=== PATIENT | male | born 1955 | race African-American/Black ===

== ENCOUNTER 2017-03-26 07:45 | Inpatient (IN) | payer OTHER ==
[~2017-03-26] VITALS: Ht 193 cm; Wt 104.9 kg
--- NOTE | ~2017-03-26 | 2DMMODE ---
[facility] [address] [place] [address] 2 D/M-MODE ECHOCARDIOGRAM Name: JOLIE HENDRICKSON KYLIE Room #: 212-P ADM IN M.R.#: [id number] Admission: 03/26/17 Attend Phys: Asa Swenson Discharge: Date of : 57 Date of Service: 03/26/17 1318 Report #: [id number] THIS REPORT FOR: //name// APPROVED REPORT Study performed: 03/26/2017 11:44:11 EXAM: Comprehensive 2D, Doppler, and color-flow Echocardiogram Patient Location: Bedside Room #: 212 Status: routine Other Information Study Quality: Good Indications Aflutter. Hx: SVT 2D Dimensions RVDd: 49.96 mm LVEF(%): 33.25 (>50%) IVSd: 12.20 (7-11mm) LVOT Diam: 23.80 (18-24mm) LVDd: 67.56 mm PWd: 13.44 (7-11mm) Ascending Ao: 40.14 (22-36mm) LVDs: 56.59 (25-40mm) Aortic Root: 42.78 mm Doe's LVEF: 33.25 % Volumes Left Atrial Volume (Systole) Single Plane 4CH: 89.74 mL Single Plane 2CH: 100.45 mL LA ESV Index: 47.00 mL/m2 Aortic Valve AoV Peak Twin.: 1.80 m/s AO Peak Gr.: 32.74 mmHg LVOT Max P.47 mmHg LVOT Max V: 0.61 m/s TIEN Vmax: 1.50 cm2 Mitral Valve MV Decel. Time: 251.28 ms MV E Max Twin.: 0.70 m/s Pulmonary Valve PV Peak Twin.: 0.63 m/s PV Peak Gr.: 1.59 mmHg [facility] [place] [address] 2 D/M-MODE ECHOCARDIOGRAM Name: JOLIE HENDRICKSON [place] Room #: 212-P ADM IN M.R.#: [id number] Admission: 03/26/17 Attend Phys: Asa Swenson Discharge: Date of : 57 Date of Service: 03/26/17 1318 Report #: [id number] Tricuspid Valve TR Peak Twin.: 2.69 m/s RAP Estimate: 15.00 mmHg TR Peak Gr.: 28.93 mmHg PA Pressure: 44.00 mmHg Left Ventricle Left ventricle is dilated. Mild concentric left ventricular hypertrophy. Left ventricular systolic function is severely decreased. LVEF is 20-25%. This study is not technically sufficient to allow evaluation of the LV diastolic function. Right Ventricle Right ventricle is dilated. Right ventricle is moderate to severely hypokinetic. Atria Left atrium is dilated. Right atrium is dilated. Aortic Valve Aortic valve leaflets are mildly thickened. Trace aortic regurgitation. There is no aortic valvular stenosis. Mitral Valve The mitral valve is normal in structure. Moderate mitral regurgitation. No evidence of mitral valve stenosis. Tricuspid Valve There is moderate to severe tricuspid regurgitation. The right atrial pressure is estimated at 15 mmHg. There is moderate pulmonary hypertension with an estimated PAP of 44mmHg. Pulmonic Valve The pulmonary valve is normal in structure. Mild pulmonic regurgitation. Great Vessels Aortic root is dilated at 4.3cm. The ascending aorta is mildly dilated. IVC is dilated and collapses <50% with inspiration. Pericardium There is no pericardial effusion. <Conclusion> Left ventricular systolic function is severely decreased. LVEF is 20-25%. [facility] [address] [address] 2 D/M-MODE ECHOCARDIOGRAM Name: JOLIE HENDRICKSON [place] Room #: 212-P [facility] IN .R.#: [id number] Admission: 03/26/17 Attend Phys: Aas Swenson Discharge: Date of : 57 Date of Service: 03/26/17 1318 Report #: [id number] Four chamber enlargement Aortic valve leaflets are mildly thickened. Trace aortic regurgitation, no stenosis. The mitral valve is normal in structure. Moderate mitral regurgitation. Pulmonary artery pressure of 40mmHg There is no pericardial effusion. <ELECTRONICALLY SIGNED> By: Johnathan Arevalo MD, [facility] 03/26/17 1318 17 1318 Johnathan Arevalo MD, FACC /INF
--- NOTE | ~2017-03-26 | EKG ---
[address] [address] ELECTROCARDIOGRAM REPORT Name: EMEKAJOLIEEDUIN ESPINAL Room #: PRE [facility].R.#: [id number] Admission: Attend Phys: Discharge: Date of : 57 Report #: [id number] THIS REPORT FOR: //name// [facility] ED Test Date: 2017-03-26 Test Time: 07:48:33 Pat Name: JOLIE HENDRICKSON Department: Room: Gender: Grinder Set Up Operator Surface: ELENITA : 1955 Requested By: Erik Woodruff Order Number: [id number] MD: Johnathan Arevalo Measurements Intervals [place] Rate: 92 P: SD: QRS: 8 QRSD: 104 T: 167 QT: 374 QTc: 463 Interpretive Statements Atrial flutter LVH with secondary repolarization abnormality No previous ECG available for comparison Electronically Signed On 03-26-2017 8:59:16 CDT by Johnathan Arevalo [email or web address] <ELECTRONICALLY SIGNED> By: Johnathan Arevalo MD, [facility] 03/26/17 0859 0748 0748 Johnathan Arevalo MD, FACC /EPI
[2017-03-26 07:47] VITALS: BP 90/64
[2017-03-26 08:20] LABS: HEMATOCRIT 35.2 % (42.0-52.0); HEMOGLOBIN 11.3 gm/dL (14.0-18.0); MCH 24.3 pg (26.0-34.0); MCHC 32.2 g/dL (28.0-37.0); MCV 75.4 fL (80.0-100.0); PLATELET COUNT 215 thou/uL (150-400); RBC 4.67 mil/uL (4.50-6.00); RDW 21.9 % (10.5-14.5)
[2017-03-26 08:21] LABS: MANUAL DIFF YES
[2017-03-26 08:24] LABS: ANION GAP 6 mmol/L (7-16); BUN 22 mg/dL (7-18); CALCIUM 8.8 mg/dL (8.5-10.1); CHLORIDE 102 mmol/L (98-107); CO2 27 mmol/L (21-32); CREATININE 1.5 mg/dL (0.7-1.3); GLUCOSE 120 mg/dL (74-106); SODIUM 135 mmol/L (136-145)
[2017-03-26 08:32] LABS: TROPONIN-I < 0.04 ng/mL (<0.04-0.07)
[2017-03-26] MEDS ORDERED: LOPRESSOR100 M1 PO (08:47)
[2017-03-26] MEDS ORDERED: LISINOPRIL20 MG PO (08:48)
[2017-03-26] MEDS ORDERED: ASPIRIN325 PO (08:49)
[2017-03-26] MEDS ORDERED: PAXIL10 MG PO (08:49)
[2017-03-26] MEDS ORDERED: LASIX 80 MG TAB80 MG PO (08:49)
[2017-03-26 09:39] LABS: ABSOLUTE NEUTROPHILS 2.4 thou/uL (1.4-8.2); TOTAL CELL COUNT 100
[2017-03-26 09:40] LABS: ANISOCYTOSIS 2+; MICROCYTES 2+; OVALOCYTES 1+
[2017-03-26 11:37] VITALS: BP 116/88
[2017-03-26 11:50] VITALS: BP 107/81
[2017-03-26 17:38] VITALS: BP 115/85
[2017-03-26 20:00] VITALS: BP 105/83
[2017-03-26 23:33] VITALS: BP 110/78
[2017-03-27 03:58] VITALS: BP 126/92
[2017-03-27 04:07] LABS: CALCIUM 8.5 mg/dL (8.5-10.1); CREATININE 1.2 mg/dL (0.7-1.3); POTASSIUM 4.1 mmol/L (3.5-5.1)
[2017-03-27 07:55] VITALS: BP 125/93
[2017-03-27 12:10] VITALS: BP 119/86
[2017-03-27 16:25] VITALS: BP 127/80
[2017-03-27 20:17] VITALS: BP 130/97
[2017-03-28 03:17] LABS: CALCIUM 8.6 mg/dL (8.5-10.1); CREATININE 1.1 mg/dL (0.7-1.3); POTASSIUM 3.8 mmol/L (3.5-5.1)
[2017-03-28 04:30] VITALS: BP 136/94
[2017-03-28 07:34] VITALS: BP 119/88
[2017-03-28] MEDS ORDERED: CARDIZEM CD120 MG PO (09:54)
[2017-03-28] MEDS ORDERED: TOPROL XL100 MG PO (09:54)
[2017-03-28] MEDS ORDERED: PRADAXA150 MG PO (09:54)
[2017-03-28 10:38] VITALS: BP 119/88
[2017-03-28 11:00] VITALS: BP 115/82
[2017-03-28 14:39] VITALS: BP 119/88
== END 2017-03-28 14:40 | disposition home or self-care (01) | DRG 310 ==
LOC: ER 07:45 → EROBS 09:48 → 2N 10:18
PROVIDERS: Emergency Medicine; Nurse Practitioner Acute Care; Nurse Practitioner Adult Health
DX: I48.92 Unspecified atrial flutter (principal); I42.9 Cardiomyopathy, unspecified; I48.91 Unspecified atrial fibrillation; D64.9 Anemia, unspecified; I47.1 Supraventricular tachycardia; I95.9 Hypotension, unspecified; Z91.19 Patient's noncompliance with other medical treatment and regimen; Z79.82 Long term (current) use of aspirin; Z79.899 Other long term (current) drug therapy
CPT/HCPCS: 10081

== ENCOUNTER 2017-04-04 07:25 | Emergency (ER) | payer OTHER ==
[~2017-04-04] VITALS: Ht 188 cm; Wt 95.3 kg
--- NOTE | ~2017-04-04 | EKG ---
[place] [address] [facility] [place] [address] ELECTROCARDIOGRAM REPORT Name: JOLIE HENDRICKSON [facility] [id number] Admission: 04/04/17 Attend Phys: Discharge: 04/04/17 Date of : 57 Report #: [id number] THIS REPORT FOR: //name// [facility] ED Test Date: 2017-04-04 Test Time: 07:28:13 Pat Name: JOLIE HENDRICKSON Department: Room: Gender: Strategies Analyst: KIET Fabian : 1955 Requested By: Gamaliel Adams Order Number: [id number] MD: Johnathan Arevalo Measurements Intervals [place] Rate: 107 P: 94 IL: 166 QRS: 3 QRSD: 102 T: 132 QT: 327 QTc: 437 Interpretive Statements Atrial flutter LVH with secondary repolarization abnormality Compared to ECG 03/26/2017 07:48:33 no significant change was found Electronically Signed On 04-06-2017 11:58:20 CDT by Johntahan Arevalo [email or web address] <ELECTRONICALLY SIGNED> By: Johnathan Arevalo MD, [facility] 04/06/17 1158 0728 7 Johnathan Arevalo MD, FACC /EPI
[~2017-04-04 07:25] MED LIST: ASPIRIN325 PO; CARDIZEM CD120 MG PO; LASIX 80 MG TAB80 MG PO; LISINOPRIL20 MG PO; LOPRESSOR100 M1 PO; PAXIL10 MG PO; PRADAXA150 MG PO; TOPROL XL100 MG PO
[2017-04-04 08:00] LABS: HEMATOCRIT 34.4 % (42.0-52.0); HEMOGLOBIN 11.1 gm/dL (14.0-18.0); MCH 24.4 pg (26.0-34.0); MCHC 32.2 g/dL (28.0-37.0); MCV 75.7 fL (80.0-100.0); PLATELET COUNT 241 thou/uL (150-400); RBC 4.55 mil/uL (4.50-6.00); RDW 21.9 % (10.5-14.5); WBC 3.7 thou/uL (4.0-11.0)
[2017-04-04 08:01] LABS: MANUAL DIFF YES
[2017-04-04 08:06] LABS: ANION GAP 11 mmol/L (7-16); BUN 21 mg/dL (7-18); CALCIUM 8.5 mg/dL (8.5-10.1); CHLORIDE 101 mmol/L (98-107); CO2 24 mmol/L (21-32); CREATININE 1.5 mg/dL (0.7-1.3); GLUCOSE 101 mg/dL (74-106); POTASSIUM 4.3 mmol/L (3.5-5.1); SODIUM 136 mmol/L (136-145)
[2017-04-04 08:16] LABS: ABSOLUTE NEUTROPHILS 2.4 thou/uL (1.4-8.2); TOTAL CELL COUNT 100
[2017-04-04 08:17] LABS: ALBUMIN 3.4 g/dL (3.4-5.0); ALKALINE PHOSPHATASE 99 U/L (46-116); MAGNESIUM 2.1 mg/dL (1.8-2.4); NT-PRO BRAIN NAT PEPTIDE 5674 pg/mL (<300); SGOT 29 U/L (15-37); SGPT 19 U/L (30-65); TOTAL PROTEIN 8.4 g/dL (6.4-8.2); TROPONIN-I < 0.04 ng/mL (<0.04-0.07)
[2017-04-04 08:19] LABS: ANISOCYTOSIS 2+; POLYCHROMASIA OCCASIONAL
[2017-04-04 08:20] LABS: HYPOCHROMASIA 1+; INR 1.3; PROTIME 13.2 Seconds (9.3-11.4)
== END 2017-04-04 10:00 | disposition home or self-care (01) ==
LOC: ER 07:25
PROVIDERS: Emergency Medicine
DX: I47.1 Supraventricular tachycardia (principal); I95.9 Hypotension, unspecified; K42.9 Umbilical hernia without obstruction or gangrene; Z91.14 Patient's other noncompliance with medication regimen

== ENCOUNTER 2019-06-09 07:18 | Inpatient (IN) | payer OTHER ==
[~2019-06-09] VITALS: Ht 193 cm; Wt 106.7 kg
[2019-06-09 07:23] VITALS: BP 143/95
[2019-06-09 07:45] LABS: ABSOLUTE NEUTROPHILS 3.7 thou/uL (1.4-8.2); BASOPHILS 0.2 % (0.0-2.0); EOSINOPHILS 0.8 % (0.0-3.0); HEMATOCRIT 44.9 % (42.0-52.0); HEMOGLOBIN 15.2 gm/dL (14.0-18.0); LYMPHOCYTES 24.3 % (24.0-44.0); MCH 28.8 pg (26.0-34.0); MCHC 33.8 g/dL (28.0-37.0); MCV 85.3 fL (80.0-100.0); MONOCYTES 11.2 % (1.0-8.0); PLATELET COUNT 221 thou/uL (150-400); POLYS 63.5 % (36.0-66.0); RBC 5.26 mil/uL (4.50-6.00); RDW 15.3 % (10.5-14.5); WBC 5.9 thou/uL (4.0-11.0)
[2019-06-09 07:55] LABS: CALCIUM 8.9 mg/dL (8.5-10.1); CREATININE 1.5 mg/dL (0.7-1.3)
[2019-06-09 08:01] LABS: APTT 29.6 Seconds (24.5-32.8); PROTIME 10.9 Seconds (9.3-11.4)
[2019-06-09 08:05] LABS: ALBUMIN 3.6 g/dL (3.4-5.0); MAGNESIUM 2.1 mg/dL (1.8-2.4); TOTAL BILIRUBIN 0.9 mg/dL (<0.1-1.0); TOTAL PROTEIN 8.4 g/dL (6.4-8.2); TROPONIN-I 0.09 ng/mL (<0.06)
--- NOTE | 2019-06-09 08:25 | EKG ---
[place] [address] [place] [address] ELECTROCARDIOGRAM REPORT Name: JOLIE HENDRICKSON [facility] [id number] Admission: 06/09/19 Attend Phys: Discharge: Date of : 57 Report #: [id number] THIS REPORT FOR: //name// [facility] ED Test Date: 2019-06-09 Test Time: 07:23:28 Pat Name: JOLIE HENDRICKSON Department: Room: Gender: Attending Anesthesiologist: TJOHNSONDENICE : 1955 Requested By: Herrera Motley Order Number: [id number] MD: Johnathan Arevalo Measurements Intervals [place] Rate: 123 P: 84 NC: 102 QRS: -18 QRSD: 98 T: 76 QT: 317 QTc: 454 Interpretive Statements Atrial flutter Nonspecific ST segment abnormality Baseline wander in lead(s) V4 Compared to ECG 04/04/2017 07:28:13 T-wave abnormality is less prominent Electronically Signed On 06-09-2019 8:25:12 CDT by Johnathan Arevalo [email or web address] <ELECTRONICALLY SIGNED> By: Johnathan Arevalo MD, [facility] [address] 2 2 Johnathan Arevalo MD, [facility] /EPI
[2019-06-09 09:28] VITALS: BP 96/75
--- NOTE | 2019-06-09 09:48 | NUR ---
ATTEMPTED TO CALL REPORT TO CCU, RN BUSY AT THIS TIME.
[2019-06-09 11:05] VITALS: BP 97/72
[2019-06-09 11:45] VITALS: BP 119/80
--- NOTE | 2019-06-09 14:46 | 2DMMODE ---
[facility] [address] [place] [address] 2 D/M-MODE ECHOCARDIOGRAM Name: JOLIE HENDRICKSON KYLIE Room #: 214-P ADM IN M.R.#: [id number] Admission: 06/09/19 Attend Phys: Camilo Doe MD Discharge: Date of : 57 Date of Service: 06/09/19 1446 Report #: [id number] THIS REPORT FOR: //name// APPROVED REPORT Study performed: 06/09/2019 13:25:59 EXAM: Comprehensive 2D, Doppler, and color-flow Echocardiogram Patient Location: Bedside Room #: 214 Status: routine BSA: 2.35 HR: 105 bpm BP: 109/68 mmHg Rhythm: Atrial Fibrillation Other Information Study Quality: Good Indications Atrial Fibrillation 2D Dimensions RVDd: 42.39 mm IVSd: 10.65 (7-11mm) LVOT Diam: 25.51 (18-24mm) LVDd: 58.28 mm PWd: 11.06 (7-11mm) Ascending Ao: 47.44 (22-36mm) LVDs: 49.75 (25-40mm) Aortic Root: 42.10 mm IVC: 21.00 mm Volumes Left Atrial Volume (Systole) Single Plane 4CH: 102.24 mL Single Plane 2CH: 63.36 mL LA ESV Index: 40.00 mL/m2 Aortic Valve AoV Peak Twin.: 1.32 m/s AO Peak Gr.: 6.93 mmHg LVOT Max P.65 mmHg LVOT Max V: 0.81 m/s TIEN Vmax: 3.16 cm2 Pulmonary Valve PV Peak Twin.: 0.76 m/s PV Peak Gr.: 2.30 mmHg Tricuspid Valve [facility] [address] [address] 2 D/M-MODE ECHOCARDIOGRAM Name: JOLIE HENDRICKSON [place] Room #: 214- ADM IN .R.#: [id number] Admission: 06/09/19 Attend Phys: Camilo Doe MD Discharge: Date of : 57 Date of Service: 06/09/19 1446 Report #: [id number] TR Peak Wtin.: 2.50 m/s TR Peak Gr.: 25.02 mmHg PA Pressure: 34.00 mmHg Left Ventricle Left ventricle is dilated. There is global hypokinesis of the left ventricle. There is normal left ventricular wall thickness. Left ventricular ejection fraction is moderate to severely decreased. LVEF is 30%. This study is not technically sufficient to allow evaluation of the LV diastolic function due to atrial fibrillation. Right Ventricle Right ventricle is dilated. The right ventricular systolic function is normal. Atria Left atrium is dilated. Right atrium is dilated. Aortic Valve The aortic valve is normal in structure. No aortic regurgitation is present. There is no aortic valvular stenosis. Mitral Valve The mitral valve is normal in structure. Mild mitral regurgitation. No evidence of mitral valve stenosis. Tricuspid Valve The tricuspid valve is normal in structure. There is trace to mild tricuspid regurgitation. Estimated PAP 34 mmHg. There is mild pulmonary hypertension. Pulmonic Valve The pulmonary valve is normal in structure. There is no pulmonic valvular regurgitation. Great Vessels Aortic root is borderline dilated. The ascending aorta is dilated. IVC is dilated and collapses >50% with inspiration. Pericardium There is no pericardial effusion. <Conclusion> Left ventricle is dilated. LVEF is 30%. [facility] [place] [address] 2 D/M-MODE ECHOCARDIOGRAM Name: JOLIE HENDRICKSON KYLIE Room #: 214-P ADM IN M.R.#: [id number] Admission: 06/09/19 Attend Phys: Camilo Doe MD Discharge: Date of : 57 Date of Service: 06/09/19 1446 Report #: [id number] There is global hypokinesis of the left ventricle. Right ventricle is dilated. Left atrium is dilated. Right atrium is dilated. The aortic valve is normal in structure. The mitral valve is normal in structure. Mild mitral regurgitation. The tricuspid valve is normal in structure. There is trace to mild tricuspid regurgitation. Estimated PAP 34 mmHg. There is mild pulmonary hypertension. The pulmonary valve is normal in structure. Aortic root is borderline dilated. The ascending aorta is dilated. There is no pericardial effusion. <ELECTRONICALLY SIGNED> By: Brandan Masters MD 06/09/19 1446 1446 1446 Brandan Masters MD /INF
[2019-06-09 16:06] VITALS: BP 134/93
--- NOTE | 2019-06-09 18:03 | NUR ---
PATIENT ARRIVED FROM ED VIA STRECHER, ALERT AND ORIENTED X4. VSS AND AFIB ON THE MONITOR. DENEIS ANY CP OR DISCOMFORT AT THIS TIME. AND WILL CONTINUE WITH POC.
[2019-06-09 19:48] VITALS: BP 135/91
[2019-06-10 04:08] VITALS: BP 142/95
--- NOTE | 2019-06-10 05:00 | NUR ---
PATIETNS CARE WAS ASSUMED AT SHIFT CHANGE. PATIENT WAS ASSESSED AND MEDS WERE PASSED. PATIENT HAS BEEN NPO AFTER MIDNIGHT. PATIENT IS GOING FOR A PROCEDURE IN THE MORNING. HOURLY ROUNDING WAS DONE. THE BED ALARM IS OFF DUE TO PATIENT IS INDEPENDENT IN HIS ROOM. THE BED IS IN A LOW AND LOCKED POSITION.
[2019-06-10 05:14] LABS: CALCIUM 8.4 mg/dL (8.5-10.1); CREATININE 1.1 mg/dL (0.7-1.3); POTASSIUM 4.4 mmol/L (3.5-5.1)
--- NOTE | 2019-06-10 15:46 | TEE ---
[facility] [address] [place] [address] TRANSESOPHAGEAL ECHOCARDIOGRAM Name: JOLIE HENDRICKSON Room #: 214-P ADM IN M.R.#: [id number] Admission: 06/09/19 Attend Phys: Camilo Doe MD Discharge: Date of : 57 Date of Service: 06/10/19 1546 Report #: [id number] THIS REPORT FOR: //name// APPROVED REPORT Study performed: 06/10/2019 07:43:04 EXAM: Comprehensive 2D, Doppler, and color-flow Echocardiogram Patient Location: In-Patient Room #: 9 Status: routine BSA: 2.35 HR: 125 bpm BP: 127/99 mmHg Rhythm: Atrial Flutter Other Information Study Quality: Excellent Indications Atrial Fibrillation Echo Enhancing Agent Indication: Rule out Shunt Agent(s) / Amount(s) Used: Agitated Saline 7 cc Procedure After obtaining informed consent, patient underwent transesophageal echo in the [facility] [employer] [facility]. Type of Sedation : Conscious Sedation Sedation was administered by Ruba Barajas RN. Versed (2.5 mg) Fentanyl (100 m,cg) Transesophageal probe was inserted and advanced into esophagus without difficulty by Johnathan Arevalo MD. Echo enhancement indication: R/O Septal defect. Echo enhancement agent administered: Agitated Saline The JOJO was performed without complications. Throughout the procedure, the blood pressure, pulse oximetry, cardiac rhythm, and rate were monitored. The patient tolerated the procedure without adverse effects. Recovery from conscious sedation was uneventful and vital signs were stable. Left Ventricle [facility] [address] [place] [address] TRANSESOPHAGEAL ECHOCARDIOGRAM Name: JOLIE HENDRICKSON [place] Room #: 214-P [facility] IN M.R.#: [id number] Admission: 06/09/19 Attend Phys: Camilo Doe MD Discharge: Date of : 57 Date of Service: 06/10/19 1546 Report #: [id number] Left ventricle is dilated. There is global hypokinesis of the left ventricle. Mild concentric left ventricular hypertrophy. Left ventricular ejection fraction is severely decreased. LVEF is 25-30%. Right Ventricle The right ventricle is normal size. Right ventricle is hypokinetic. Atria Left atrium is dilated. No thrombus is visualized in the left atrium or appendage. No shunting by contrast bubble injection Right atrium is dilated. Prominent eustachian valve Aortic Valve The aortic valve is normal in structure. No aortic regurgitation is present. There is no aortic valvular stenosis. Mitral Valve The mitral valve is normal in structure. Mild mitral regurgitation. No evidence of mitral valve stenosis. Tricuspid Valve The tricuspid valve is normal in structure. Trace tricuspid regurgitation. Pulmonic Valve The pulmonary valve is normal in structure. There is no pulmonic valvular regurgitation. Great Vessels The aortic root is normal in size. IVC is normal in size and collapses >50% with inspiration. Pericardium There is no pericardial effusion. Critical Notification Physician Notified Date: 06/10/2019 <Conclusion> Left ventricular ejection fraction is severely decreased. There is global hypokinesis of the left ventricle. LVEF is 25-30%. Both atria are dilated. [facility] [address] [place] [address] TRANSESOPHAGEAL ECHOCARDIOGRAM Name: JOLIE HENDRICKSON Room #: 214-P ADM IN M.R.#: [id number] Admission: 06/09/19 Attend Phys: Camilo Doe MD Discharge: Date of : 57 Date of Service: 06/10/19 1546 Report #: [id number] No thrombus is visualized in the left atrium or appendage. No shunting by contrast bubble injection The aortic valve is normal in structure. No aortic regurgitation or stenosis The mitral valve is normal in structure. Mild mitral regurgitation. There is no pericardial effusion. <ELECTRONICALLY SIGNED> By: Johnathan Arevalo MD, FACC 06/10/19 1546 45 45 Johnathan Arevalo MD, FACC /INF
--- NOTE | 2019-06-10 15:52 | 2DMMODE ---
[address] [address] 2 D/M-MODE ECHOCARDIOGRAM Name: JOLIE HENDRICKSON Room #: 214-P ADM IN M.R.#: [id number] Admission: 06/09/19 Attend Phys: Camilo Doe MD Discharge: Date of : 57 Date of Service: 06/10/19 1551 Report #: [id number] THIS REPORT FOR: //name// APPROVED REPORT Study performed: 06/10/2019 15:29:36 EXAM: Comprehensive 2D, Doppler, and color-flow Echocardiogram Patient Location: Post-Op Status: stat BSA: 2.35 HR: 65 bpm BP: 130/90 mmHg Rhythm: NSR Other Information Study Quality: Good Indications Chest Pain Post-Op Ablation Left Ventricle Left ventricle is dilated. There is global hypokinesis of the left ventricle. Mild concentric left ventricular hypertrophy. Left ventricular ejection fraction is severely decreased. LVEF is 25%. Right Ventricle Right ventricle is dilated. Right ventricle is hypokinetic. Atria Left atrium is dilated. Right atrium is dilated. Aortic Valve The aortic valve is normal in structure. Mitral Valve The mitral valve is normal in structure. Tricuspid Valve The tricuspid valve is normal in structure. [address] [address] 2 D/M-MODE ECHOCARDIOGRAM Name: JOLIE HENDRICKSON Room #: 214-P ADM IN M.R.#: [id number] Admission: 06/09/19 Attend Phys: Camilo Doe MD Discharge: Date of : 57 Date of Service: 06/10/19 1551 Report #: [id number] Pulmonic Valve The pulmonary valve is normal in structure. Great Vessels The aortic root is normal in size. Pericardium There is no pericardial effusion. <Conclusion> Left ventricle is dilated. LVEF is 25%. There is global hypokinesis of the left ventricle. Right ventricle is dilated. Right ventricle is hypokinetic. Left atrium is dilated. Right atrium is dilated. The aortic valve is normal in structure. The mitral valve is normal in structure. The tricuspid valve is normal in structure. There is no pericardial effusion. <ELECTRONICALLY SIGNED> By: Brandan Masters MD 06/10/19 155 155 50 Brandan Masters MD /INF
[2019-06-10 16:17] VITALS: BP 128/93
[2019-06-10 17:11] VITALS: BP 142/90
--- NOTE | 2019-06-10 17:38 | NUR ---
PT RETURNED FROM EP LAB POST ABLATION THIS AFTERNOON. JOJO COMPLETED THIS AM - NORMAL - SO ABLATION DONE. GROIN SITE C/D/I. NO CO'S OF PAIN OR NAUSEA. FLORI DIET AND FLUIDS - BEDREST COMPLETED PT SITTING UP IN BED EATING AND GROIN SITE STABLE. ASSSESSMENT CHARTED - NO CO'S AT THE PRESENT TIME.
[2019-06-10 18:26] VITALS: BP 136/90
[2019-06-10 19:39] VITALS: BP 146/95
[2019-06-11 04:59] VITALS: BP 124/87
--- NOTE | 2019-06-11 05:21 | NUR ---
PATIENTS CARES WERE ASSUMED AT SHIFT CHANGE, PAITENT WAS ASSESSED, MEDS WERE PASSED. P.O VITALS WERE FINISHED AND RECORDED. PATIENT AMBULATED IN THE [facility] THIS SHIFT. PATIENT STATED HE FEELS HE IS DOING MUCH BETTER AND HE IS READY TO GO HOME. HOURLY ROUNDING WAS DONE. BED IS IN A LOW AND LOCKED POSITION,
[2019-06-11 05:22] LABS: HEMATOCRIT 39.8 % (42.0-52.0); MCH 28.4 pg (26.0-34.0); MCHC 32.8 g/dL (28.0-37.0); MCV 86.5 fL (80.0-100.0); RBC 4.6 mil/uL (4.50-6.00); RDW 15.7 % (10.5-14.5)
[2019-06-11 05:24] LABS: CALCIUM 8.6 mg/dL (8.5-10.1); POTASSIUM 3.9 mmol/L (3.5-5.1)
[2019-06-11 05:53] LABS: HEMOGLOBIN 13.1 gm/dL (14.0-18.0)
[2019-06-11 07:41] VITALS: BP 121/91
[2019-06-11] MEDS ORDERED: METOPROLOL SUCC50 MG PO (09:06)
[2019-06-11] MEDS ORDERED: PRADAXA150 MG PO (09:06)
[2019-06-11] MEDS ORDERED: COZAAR 50 MG TA50 M1 PO (09:06)
[2019-06-11 11:10] VITALS: BP 134/94
[2019-06-11 11:29] VITALS: BP 121/91
--- NOTE | 2019-06-11 16:54 | NUR ---
ASSESSMENT CHARTED - MEDS PER MAR - PT WITH NO CO'S OF PAIN OR NASUEA. FLORI DIET AND FLUIDS. UP AD ELEANOR IN ROOM AND ON THE UNIT. PT GROIN SITE C/D/I. PT HOME THIS AFTERNOON INSTRUCTION RE HOME MEDS/ CARE AND FOLLOW UP GIVEN TO PT -STATED UNDERSTANDING OF INSTRUCTION GIVEN. PT LEFT UNIT VIA WHEELCHAIR - AT THE ER ENTRANCE - HOME VIA PVT VEHICLE - MONITOR AND IV REMOVED PRIOR TO D/C. NO CO'S AT TIME OF D/C.
== END 2019-06-11 16:55 | disposition home or self-care (01) | DRG 273 ==
LOC: ER 07:18 → EROBS 08:57 → 2N 08:57
PROVIDERS: Emergency Medicine; Hospitalist; Nurse Practitioner; ADMIT Internal Medicine
PROC: B24BZZ4 Ultrasonography of Heart with Aorta, Transesophageal (ICD-10-PCS; principal; 2019-06-10)
PROC: 4A023FZ Measurement of Cardiac Rhythm, Percutaneous Approach (ICD-10-PCS; principal; 2019-06-10)
PROC: 4A0234Z Measurement of Cardiac Electrical Activity, Percutaneous Approach (ICD-10-PCS; principal; 2019-06-10)
PROC: 02583ZZ Destruction of Conduction Mechanism, Percutaneous Approach (ICD-10-PCS; principal; 2019-06-10)
DX: I48.92 Unspecified atrial flutter (principal); N17.0 Acute kidney failure with tubular necrosis; I42.9 Cardiomyopathy, unspecified; I10 Essential (primary) hypertension; F12.90 Cannabis use, unspecified, uncomplicated; R00.0 Tachycardia, unspecified; Z82.49 Family history of ischemic heart disease and other diseases of the circulatory system; Z83.3 Family history of diabetes mellitus; Z82.3 Family history of stroke; Z87.891 Personal history of nicotine dependence; Z91.19 Patient's noncompliance with other medical treatment and regimen; Z79.899 Other long term (current) drug therapy
CPT/HCPCS: 10081; 10194; 62110; 62900; 70005